=== PATIENT | male | born 1965 | race Two or more races ===

== ENCOUNTER 2017-08-03 13:41 | Inpatient (IN) | payer OTHER ==
[~2017-08-03] VITALS: Ht 172.7 cm; Wt 83.9 kg
--- NOTE | 2017-08-03 14:30 | NUR ---
MS RN NOTES CIRCULATION AND SENSATION CHECKED ALL WITHIN NORMAL LIMITS
[2017-08-03] MEDS ORDERED: AMBIEN 5 MG TABLET PO PRN (15:30)
[2017-08-03] MEDS ORDERED: TYLENOL 650 MG TABLET PO PRN (15:30)
[2017-08-03] MEDS ORDERED: IV D5/0.45 NACL 1,000 ML IV PRN (15:30)
[2017-08-03] MEDS ORDERED: COLACE 100 MG CAPSULE PO PRN (15:30)
[2017-08-03] MEDS ORDERED: DULCOLAX 10 MG/SUPP.RECT RC PRN (15:30)
--- NOTE | 2017-08-03 15:30 | NUR ---
MS RN NOTES CIRCULATION AND SENSATION CHECKED ALL WITHIN NORMAL LIMITS
[2017-08-03] MEDS ORDERED: MELO-107 PO (15:37)
[2017-08-03] MEDS ORDERED: HYDR-3974 PO (15:37)
[2017-08-03] MEDS ORDERED: CYCL5TAB PO (15:37)
[2017-08-03 16:00] VITALS: BP 123/67
[2017-08-03] MEDS: HYDROMORPHONE 1 MG/1 ML DISP.SYRIN IV PRN ×2 (16:11→22:39)
[2017-08-03] MEDS: ANCEF 1 G in IV D5W 50 ML IV SCH (16:20)
--- NOTE | 2017-08-03 16:30 | NUR ---
MS RN NOTES CIRCULATION AND SENSATION CHECKED ALL WITHIN NORMAL LIMITS
--- NOTE | 2017-08-03 18:22 | NUR ---
MS RN NOTES CIRCULATION AND SENSATION CHECKED ALL WITHIN NORMAL LIMITS
[2017-08-03] MEDS ORDERED: MAGNESIUM HYDROXIDE 30 ML UDC PO PRN (19:30)
--- NOTE | 2017-08-03 19:31 | NUR ---
MS RN NOTES NO ACUTE CHANGES NOTED DURING THE SHIFT. DUE MEDS GIVEN. PROVIDED COMFORT AND SAFETY. ENDORSED TO THE PM NURSE FOR [place].
--- NOTE | 2017-08-03 20:00 | NUR ---
RN MS INITIAL NOTES RECEIVED PT FROM AM SHIFT S/P RT SHOULDER SX VS WNL ON PRN PAIN MEDICATION GIVEN ORDERED, AFEBRILE WILL CONT TO MONITOR.
[2017-08-04] MEDS: ANCEF 1 G in IV D5W 50 ML IV SCH (01:23)
[2017-08-04] MEDS: HYDROMORPHONE 1 MG/1 ML DISP.SYRIN IV PRN ×2 (01:23→04:11)
[2017-08-04 04:00] VITALS: BP 145/88
--- NOTE | 2017-08-04 06:06 | NUR ---
RN MS CLOSING NOTES ENDORSED PT TO AM SHIFT S/P RT SHOULDER SX VS WNL ON PRN PAIN MEDICATION GIVEN ORDERED, AFEBRILE WILL CONT TO MONITOR, F/U WITH SURGEON FOR D/C AM PT WANTS TO GO HOME.
[2017-08-04 08:00] VITALS: BP_SYST 126; BP_SYST 140; BP_DIAS 80; BP_DIAS 96
[2017-08-04] MEDS: HYDROMORPHONE INJ 0.5 MG/0.5 ML SYRINGE IV PRN ×2 (08:51→11:30)
[2017-08-04] MEDS ORDERED: ASPIRIN 325 MG TABLET PO SCH (09:00)
[2017-08-04] MEDS ORDERED: HYDR-552 PO (14:42)
--- NOTE | 2017-08-04 15:46 | NUR ---
Assumed care of patient from 0700 to time of d/c at 1540. VSS. Afeb. Medicated for pain with Dilaudid 1 mg IVP x 2 with relief. Farmer dc'd and patient voiding well. Encouraged to drink fluids. IV dc'd with catheter intact. D/C instructions given to patient and verbalized understandings. Personal belongings checklist done and patient had all belongings. R arm in sling. Patient alert and ambulatory out of hospital with . Fanny ROWELL
== END 2017-08-04 15:43 | disposition home or self-care (01) | DRG 483 ==
LOC: MEDSG1 13:41
PROVIDERS: ADMIT Orthopaedic Surgery; ATTEND Orthopaedic Surgery
PROC: 0RRJ00Z Replacement of Right Shoulder Joint with Reverse Ball and Socket Synthetic Substitute, Open Approach (ICD-10-PCS; principal; 2017-08-03)
DX: M19.011 Primary osteoarthritis, right shoulder (principal); M75.101 Unspecified rotator cuff tear or rupture of right shoulder, not specified as traumatic
CPT/HCPCS: 36415; 73020; 80048-TC; 85025-TC; 86850-TC; 86921-TC; 88305-TC; 88311-TC; A4216; J0330; J0690; J1170; J1885; J2270; J2765; J3010; J3490; J7030; J7060

== ENCOUNTER → 2017-08-03 | Day surgery (SDC) | payer OTHER ==
[~2017-08-03] MED LIST: ACETAMINOPHEN 325 MG TABLET ONE; ANESTHESIA TRAY IN PYXIS 1 EA TRAY MC ONE; ASPIRIN 600 MG/SUPP.RECT RC ONE; BACITRACIN 50000 UNITS/VIAL ONE; BUPIVACAINE 0.5 % PF 150 MG/30 ML VIAL ONE; CEFAZOLIN 1 GM in IV NS 0.9% 50 ML IV SCH; CELECOXIB 100 MG CAPSULE ONE; CYCL5TAB PO; FENTANYL PF 250MCG/5ML AMPUL ONE; HYDR-3974 PO; HYDR-552 PO; HYDROMORPHONE 1 MG/1 ML DISP.SYRIN ONE; KETOROLAC TROMETHAMINE INJ 30 MG/ML VIAL IV ONE; KETOROLAC TROMETHAMINE INJ 30 MG/ML VIAL ONE; MELO-107 PO; METOCLOPRAMIDE HCL 10 MG/2 ML VIAL ONE; MORPHINE SULFATE INJ 10 MG/ML DISP.SYRIN ONE; ROCURONIUM BROMIDE 50 MG/5 ML ONE; SUCCINYLCHOLINE CHLORIDE 20 MG/ML VIAL ONE; TRANEXAMIC ACID 1,500 MG in IV NS 0.9% 50 ML IV ONE; oxyCODONE HCL SR 10MG TAB.SR.12H PO ONE; oxyCODONE IR immediate release 5 MG ONE; oxyCODONE IR immediate release 5 MG PO ONE
--- NOTE | 2017-08-03 13:00 | NUR ---
RN NOTE: PATIENT RECEIVED FROM PACU STATUS POST RIGHT SHOULDER REPLACEMENT SURGERY. SLING IS ON. DVT SLEEVE ARE ON. DENIES PAIN & DISCOMFORT. STATED HAVING PAIN BUT CAN TOLERATE AT THIS TIME. WILL LET US KNOW FOR MEDICATION. DENIES NAUSEA & VOMITING. SAFETY MEASURES OBSERVED. CALL LIGHT WITHIN REACH. WILL CONTINUE TO MONITOR. PATIENT STATED IS NOT READY TO GET DISCHARGE TODAY. DR. PULIDO'S PA IS AWARE, WILL GIVE PRESCRIPTION TOMORROW AM.
--- NOTE | 2017-08-03 14:09 | NUR ---
LELIA NOTE: REPORT GIVEN TO TORIE ROWELL DUE TO ASSIGNMENT CHANGE.
[2017-08-04 09:54] LABS: BASOPHILS % (AUTO) 0.1 % (0.0-2.0); HEMATOCRIT 37 % (39-51); HEMOGLOBIN 13.1 g/dL (13.5-17.5); LYMPHOCYTES # (AUTO) 1.5 /CMM (0.8-4.8); LYMPHOCYTES % (AUTO) 15.6 % (20.0-44.0); MEAN CORPUSCULAR HEMOGLOBIN 34 PG (26.0-33.0); MEAN CORPUSCULAR HGB CONC 35 g/dl (31.0-36.0); MEAN CORPUSCULAR VOLUME 97 fL (80-96); MONOCYTES # (AUTO) 0.7 /CMM (0.1-1.30); MONOCYTES % (AUTO) 7.8 % (2.0-12.0); NEUTROPHILS # (AUTO) 7.2 /CMM (1.8-8.9); NEUTROPHILS % (AUTO) 76.5 % (43.0-81.0); PLATELET COUNT (AUTO) 171 /CMM (150-450); RDW COEFFICIENT OF VARIATION 13.4 (11.5-15.0); RED BLOOD CELL COUNT(AUTO) 3.86 MIL/uL (4.5-6.0); WHITE BLOOD COUNT (AUTO) 9.4 K/uL (4.3-11.0)
[2017-08-04 09:59] LABS: CALCIUM, SERUM 8.2 mg/dL (8.5-10.1); CREATININE 0.7 mg/dL (0.6-1.3); POTASSIUM 3.7 mmol/L (3.5-5.1)
== END | disposition other institution (70) ==
LOC: DS 05:00
PROVIDERS: ATTEND Orthopaedic Surgery
DX: M19.011 Primary osteoarthritis, right shoulder (principal); M75.101 Unspecified rotator cuff tear or rupture of right shoulder, not specified as traumatic
CPT/HCPCS: 36415; 73020; 80048-TC; 85025-TC; 86850-TC; 86921-TC; 88305-TC; 88311-TC; A4216; A4565; A6402; C1713; J0330; J0690; J1170; J1885; J2270; J2405; J2704; J2710; J2765; J3010; J3490; Z7610